=== PATIENT | female | born 1990 | race Caucasian/White ===

== ENCOUNTER 2017-03-02 18:12 | Inpatient (IN) | payer OTHER ==
[~2017-03-02] VITALS: Ht 152.4 cm; Wt 68.0 kg
[~2017-03-02 18:12] MED LIST: DEXAMETHASONE SOD PHOS 4 MG/ML VIAL IV ONE; LACTATED RINGER'S 1000 ML INJ 2,000 ML IV ONE; MORPHINE SULFATE PF 5 MG/10 ML VIAL ONE; ONDANSETRON HCL 4 MG/2 ML VIAL IV PUSH ONE; OXYTOCIN 10 UNIT/ML AMP IV ONE; PHENYLEPH/NS 1000 MCG/10 ML SYR IV ONE; TRIA.1%T EX; Z.0.NO CURRENT MEDS; ePHEDrine/NS 25 MG/5 ML SYR IV ONE
[2017-03-02] MEDS ORDERED: PREN29TA PO (18:56)
--- NOTE | 2017-03-02 19:02 | PD ---
HPI Chief Complaint Contractions Date Seen: Mar 02, 2017 Time Seen: 18:58 Travel History International Travel<30 Days: No Contact w/Intl Traveler<30Days: No Known Affected Area: No History of Present Illness HPI 26-year-old at 39 weeks and 5 days comes in complaining of contractions since this morning. Contractions began worsening about 2 PM and became more regular. Patient has had a previous section and has discussed the C- section versus vaginal after in detail with her OB provider and patient is set up for a repeat section on Sunday. Patient states that she was told that this baby is macrosomic and that the estimated weight based on extrapolation from an ultrasound at 36 weeks would be approximately 9 pounds. Patient is group B strep positive and she does desire repeat C- section. Last vaginal exam was approximately 3-4 days ago and her cervix was closed at that time Weeks Gestation: 39 Para: 1 : 3 Miscarriage: 1 History Past Medical History Medical History: Denies Significant Hx Obstetric History Obstetric History section D&C Past Surgical History Narrative Surgical and D&C Family History Family History: Social History Alcohol Use: No Tobacco Use: No Substance Abuse: No Allergies-Medications (Allergen,Severity, Reaction): Coded Allergies: No Known Allergies (Unverified , 03/17/12) Home Meds Reported Medications Vit-Iron Carbonyl ( Plus Iron 29-1 mg) 29 Mg Iron-1 Mg Tab, 1 TAB PO DAILY for Nutritional Supplement, #30 TAB 0 Refills 03/02/17 Discontinued Reported Medications Miscellaneous (No Current Meds) Misc 03/17/12 Discontinued Scripts Triamcinolone Acet (Aristocort) 0.1 % Cre, 0.1 % EX BIDPRN, #60 Prov:Rufino Roberson MD 03/17/12 Review of Systems Except as stated in HPI: all other systems reviewed are Neg Physical Exam Narrative GENERAL: Well-nourished, well-developed patient. SKIN: Warm and dry. HEAD: Normocephalic and atraumatic. EYES: No scleral icterus. No injection or drainage. ENT: No nasal drainage noted. Mucous membranes pink. Airway patent. NECK: Supple, trachea midline. No JVD. CARDIOVASCULAR: Regular rate and rhythm without murmurs, gallops, or rubs. RESPIRATORY: Breath sounds equal bilaterally. No accessory muscle use. ABDOMEN/GI: Abdomen soft, non-tender, bowel sounds present, no rebound, no guarding Gravid to [-37] weeks size Fundal Height: [-] GENITOURINARY: External Genitalia: intact and normal in appearance BUS glands: [Normal-] Cervix: [Mid position-] Dilatation: [-1 to 2] Effacement: [-80] Station: [-2-] Presentation: [Vertex-] Membranes: [intact] Uterine Contractions: [Every 3 minutes-] FHT's: Category: [1-] Baseline: [-140] Reactive: [-Moderate] Variability: [-Moderate] Decels: [-Absent] EXTREMITIES: No cyanosis or edema. BACK: Nontender without obvious deformity. No CVA tenderness. NEUROLOGICAL: Awake and alert. Motor and sensory grossly within normal limits. Five out of 5 muscle strength in all muscle groups. Normal speech. Data Data Vital Signs Reviewed: Yes Group B Strep: Positive MDM Medical Record Reviewed: Yes Plan 26-year-old who is at 39 weeks 5 days with a previous section now with regular contractions in labor Patient last ate at 2 PM and has had only water since that time. Last water intake was at 6 PM tonight Diagnosis Diagnosis: Primary Impression: 39 weeks gestation of Additional Impressions: Previous section complicating Irregular uterine contractions Brandi Mishra MD Mar 02, 2017 19:02
[2017-03-02] MEDS ORDERED: LACTATED RINGER'S 1000 ML INJ 1,000 ML IV ONE (19:03)
[2017-03-02] MEDS ORDERED: ceFAZolin 2 GM PREMIX 50 ML IV SCH (19:15)
[2017-03-02] MEDS ORDERED: LACTATED RINGER'S 1000 ML INJ 1,000 ML IV SCH (19:33)
[2017-03-02] MEDS ORDERED: ACETAMINOPHEN 1000 MG/100 ML 100 ML IV ONE (19:37)
[2017-03-02 20:03] LABS: AUTOMATED NEUTROPHIL # 10.9 TH/MM3 (1.8-7.7); BASOPHIL % 0.3 % (0.0-2.0); EOSINOPHIL # 0.1 TH/MM3 (0-0.4); EOSINOPHIL % 0.7 % (0.0-4.0); HEMATOCRIT 42.1 % (35.0-46.0); HEMO FLAGS DIFF FINAL; LYMPH % 12.9 % (9.0-44.0); LYMPHOCYTE # 1.8 TH/MM3 (1.0-4.8); MEAN CORPUSCULAR HEMOGLOBIN 30.6 PG (27.0-34.0); MEAN CORPUSCULAR HGB CONC 32.9 % (32.0-36.0); MONO % 7.4 % (0.0-8.0); NEUT % 78.7 % (16.0-70.0); PLATELET COUNT 193 TH/MM3 (150-450); RED BLOOD COUNT 4.53 MIL/MM3 (4.00-5.30); RED CELL DISTRIBUTION WIDTH 13.3 % (11.6-17.2); WHITE BLOOD COUNT 13.8 TH/MM3 (4.0-11.0)
[2017-03-02] MEDS ORDERED: CITRIC ACID-SODIUM CITRATE LIQ 30 ML UDC PO SCH (20:45)
[2017-03-02 21:10] VITALS: BP 126/67; PULSE 79; RESP 18; TEMP 97.7; O2SAT 98
[2017-03-02 21:20] VITALS: BP 131/61; PULSE 79; RESP 18; O2SAT 99
[2017-03-02 21:30] VITALS: BP 108/45; PULSE 72; RESP 18; O2SAT 99
--- NOTE | 2017-03-02 21:42 | MP ---
cc: Woody NOBLES MD DATE OF SURGERY 03/02/17 PREOPERATIVE DIAGNOSIS 1. Intrauterine at 39+ weeks. 2. Active labor. 3. Previous section. POSTOPERATIVE DIAGNOSIS 1. Intrauterine at 39+ weeks. 2. Active labor. 3. Previous section. PROCEDURES Repeat low transverse section. ANESTHESIA Spinal. SURGEON MD Mariah. FINDINGS A normal . 's 8 and 9. Weight 3880 grams. Normal fallopian tubes, normal ovaries, normal uterus. COMPLICATIONS None. COUNTS Correct. ESTIMATED BLOOD LOSS 400 cc. FLUIDS Crystalloids. CONDITION The patient tolerated the procedure well and went to recovery room in good condition. DESCRIPTION OF PROCEDURE The patient was taken to the operating room identified by name band and verbally. She was given a spinal anesthetic. A Campa catheter was inserted. She was prepped and draped for section. The old Pfannenstiel incision was removed and excised completely and the incision was taken down to the fascia. The fascia was taken off the rectus muscle by blunt and sharp dissection. The peritoneum was entered under direct vision without complication. The incision was extended with care to avoid the urinary bladder. A bladder blade was placed and a bladder flap created over the lower uterine segment which was well-developed. The uterus was then scored in a transverse manner along the lower uterine segment and taken down in the midline until the uterine cavity was entered. The incision was extended with the surgeon's fingers. The vertex was grasped and delivered through the incision without difficulty. The hypopharynx and nasopharynx were suctioned. The remainder of the was delivered. The cord was doubly clamped and cut and the handed to the resuscitation team that was present. Cord blood was obtained. The placenta was delivered manually without difficulty. The uterus was curettaged twice with a wet lap. The uterine incision was repaired with 2-0 Vicryl a running locking fashion, the second layer imbricating the first. The cul-de-sac and gutters were cleaned of blood and debris with a large amount of irrigation. The uterus was delivered back into the abdomen. The incision was again inspected and was hemostatic. The rectus muscles were reapproximated with 0 Vicryl in an interrupted fashion. The fascia was repaired with 0 Vicryl from lateral to midline bilaterally in a running fashion. The subcutaneous tissue was repaired with 3-0 Vicryl. The skin was repaired with 4-0 Monocryl in a subcuticular manner. Steri-Strips were applied. The wound was sterilely dressed. She tolerated the procedure well and went to the recovery room in good condition. R. MD JG HendrixV/EO /9:27 PM /9:30 PM
[2017-03-02 21:45] VITALS: BP 111/71; PULSE 74; RESP 18
[2017-03-02 21:47] VITALS: O2SAT 98
[2017-03-02] MEDS ORDERED: OXYTOCIN 30 UNITS-500ML PREMIX 500 ML ONE (22:03)
[2017-03-03 01:54] LABS: BLOOD, URINE TRACE (NEG); COMMENT (UR) CULT NOT INDICATED; CULTURE IF INDICATED CULT NOT INDICATED; GLUCOSE,URINE NEG (NEG); KETONE, URINE 80 mg/dL (NEG); MUCUS URINE FEW /lpf (OCC); NITRITE,URINE NEG (NEG); PH, URINE 5.5 (5.0-8.5); SQUAMOUS EPITHELIAL CELL URINE 2 /hpf (0-5); URINE COLOR YELLOW (YELLW/STRAW)
[2017-03-03] MEDS ORDERED: OXYTOCIN 30 UNITS-500ML PREMIX IV ONE (03:15)
[2017-03-03] MEDS ORDERED: ACETAMINOPHEN 325 MG TAB PO PRN (03:15)
[2017-03-03] MEDS ORDERED: ONDANSETRON HCL 4 MG/2 ML VIAL IV PUSH PRN (03:15)
[2017-03-03] MEDS ORDERED: oxyCODONE/ACETAMINOPHEN 5 MG/325 MG TAB PO PRN (03:15)
[2017-03-03] MEDS ORDERED: ZOLPIDEM TARTRATE 5 MG TAB PO PRN (03:15)
[2017-03-03] MEDS ORDERED: ceFAZolin 1,000 MG/NS 100 ML IV SCH ×4 (03:15→04:00)
[2017-03-03] MEDS ORDERED: LACTATED RINGER'S 1000 ML INJ 1,000 ML IV SCH (03:15)
[2017-03-03] MEDS ORDERED: SODIUM CHLORIDE 0.9% FLUSH 10 ML FLUSH IV FLUSH PRN ×2 (03:15)
[2017-03-03] MEDS ORDERED: OXYTOCIN 30 UNITS-500ML PREMIX IV PRN (03:15)
[2017-03-03] MEDS ORDERED: SIMETHICONE 80 MG CHEWABLE TAB PO PRN (03:15)
[2017-03-03 08:00] VITALS: BP 90/54; PULSE 80; RESP 18; TEMP 98.8
[2017-03-03] MEDS: IBUPROFEN 600 MG TAB PO PRN ×3 (08:35→20:35)
[2017-03-03] MEDS: oxyCODONE/ACETAMINOPHEN 5 MG/325 MG TAB PO PRN ×3 (08:35→20:35)
[2017-03-03 08:49] LABS: AUTOMATED NEUTROPHIL # 10.9 TH/MM3 (1.8-7.7); BASOPHIL % 0.1 % (0.0-2.0); EOSINOPHIL % 0.1 % (0.0-4.0); HEMATOCRIT 35.2 % (35.0-46.0); HEMO FLAGS DIFF FINAL; LYMPH % 10.7 % (9.0-44.0); LYMPHOCYTE # 1.5 TH/MM3 (1.0-4.8); MEAN CELL VOLUME 93.9 FL (80.0-100.0); MEAN CORPUSCULAR HEMOGLOBIN 30.9 PG (27.0-34.0); MEAN CORPUSCULAR HGB CONC 32.9 % (32.0-36.0); MONO % 8.9 % (0.0-8.0); NEUT % 80.2 % (16.0-70.0); PLATELET COUNT 146 TH/MM3 (150-450); RED BLOOD COUNT 3.75 MIL/MM3 (4.00-5.30); RED CELL DISTRIBUTION WIDTH 13.9 % (11.6-17.2); WHITE BLOOD COUNT 13.7 TH/MM3 (4.0-11.0)
[2017-03-03 14:00] VITALS: BP 94/61; PULSE 78; RESP 16; TEMP 98.2
--- NOTE | 2017-03-03 14:11 | HHI.OB ---
Subjective Post Operative Day: 1 Remarks Doing well Pain is well controlled Bleeding is normal Baby is doing well Objective Vitals/I&O Vital Signs Date Time Temp Pulse Resp B/P (MAP) Pulse Ox O2 Delivery O2 Flow Rate FiO2 03/03/17 08:00 80 18 90/54 (66) 03/03/17 08:00 98.8 03/02/17 21:47 98 03/02/17 21:45 111/71 (84) 03/02/17 21:45 74 18 03/02/17 21:30 72 18 108/45 (66) 99 03/02/17 21:20 79 18 131/61 (84) 99 03/02/17 21:10 126/67 (86) 03/02/17 21:10 97.7 79 18 03/02/17 21:10 98 Result Diagram: 03/03/17 08 Objective Remarks GENERAL: Well-nourished, well-developed patient. CARDIOVASCULAR: Regular rate and rhythm without murmurs, gallops, or rubs. RESPIRATORY: Breath sounds equal bilaterally. No accessory muscle use. ABDOMEN/GI: Abdomen soft, non-tender, bowel sounds present. Incision: Clean, dry and intact. Fundus: Firm, non-tender at umbilicus. GENITOURINARY: Light to moderate bleeding. EXTREMITIES: No cyanosis or edema, non-tender, without signs of DVT. Medications and IVs Current Medications Medications (Trade) Dose Ordered Sig/Jessica Route Start Time Stop Time Status Last Admin Cefazolin Sodium/ Dextrose 50 ml @ 100 mls/hr FLAT SURFACER JEWEL IV 03/02/17 19:15 03/06/17 19:14 Lactated Ringer's 1,000 ml @ 100 mls/hr Q10H IV 03/03/17 03:15 03/03/17 23:14 (NS Flush) 2 ml UNSCH PRN IV FLUSH 03/03/17 03:15 (NS Flush) 2 ml UNSCH PRN IV FLUSH 03/03/17 03:15 (Tylenol) 650 mg Q4H PRN PO 03/03/17 03:15 (Motrin) 600 mg Q6H PRN PO 03/03/17 03:15 03/03/17 08:35 (Percocet 5-325 Mg) 1 tab Q4H PRN PO 03/03/17 03:15 03/03/17 08:35 (Percocet 5-325 Mg) 2 tab Q4H PRN PO 03/03/17 03:15 (Ambien) 5 mg HS PRN PO 03/03/17 03:15 (M-M-R Ii Inj) 0.5 ml ONCE ONCE SQ 03/04/17 16:00 03/04/17 16:01 (Boostrix Inj) 0.5 ml ONCE ONCE IM 03/04/17 16:00 03/04/17 16:01 (Mylicon Chew) 80 mg QID PRN PO 03/03/17 03:15 (Monika-Colace) 2 tab Q12H PRN PO 03/03/17 03:15 (Zofran Inj) 4 mg Q6H PRN IV PUSH 03/03/17 03:15 Assessment/Plan Assessment and Plan POD #1 Doing well Routine care. Woody Lemus MD Mar 03, 2017 14:11
[2017-03-03] MEDS ORDERED: IBUP-232 PO (14:13)
[2017-03-03] MEDS ORDERED: OXYC1TAB63 PO (14:13)
[2017-03-03] MEDS: DOCUSATE SODIUM 50 MG/SENNA 8.6 MG TAB PO PRN (14:45)
[2017-03-03 20:30] VITALS: BP 106/66; PULSE 80; RESP 18; TEMP 98.1
[2017-03-04] MEDS: oxyCODONE/ACETAMINOPHEN 5 MG/325 MG TAB PO PRN ×5 (01:04→22:30)
[2017-03-04] MEDS: IBUPROFEN 600 MG TAB PO PRN ×4 (02:46→22:30)
[2017-03-04 08:10] VITALS: BP 107/68; PULSE 80; RESP 18; TEMP 98.1
[2017-03-04] MEDS: DOCUSATE SODIUM 50 MG/SENNA 8.6 MG TAB PO PRN ×2 (09:41→22:30)
[2017-03-04] MEDS ORDERED: MEASLES, MUMPS, RUBELLA VACCINE 0.5 ML VIAL SQ ONE (16:00)
[2017-03-04] MEDS ORDERED: DIPHTH/TETANUS/ACEL PERTUSSIS (BOOSTER) 0.5 ML VIAL/PFS IM ONE (16:00)
--- NOTE | 2017-03-04 16:31 | HHI.OB ---
Subjective Post Operative Day: 2 Remarks Doing well Pain is controlled Bleeding is normal Baby is doing well Objective Vitals/I&O Vital Signs Date Time Temp Pulse Resp B/P (MAP) Pulse Ox O2 Delivery O2 Flow Rate FiO2 03/04/17 08:10 80 18 107/68 (81) 03/04/17 08:10 98.1 03/03/17 20:30 98.1 80 18 106/66 (79) Result Diagram: 03/03/17 0825 Objective Remarks GENERAL: Well-nourished, well-developed patient. CARDIOVASCULAR: Regular rate and rhythm without murmurs, gallops, or rubs. RESPIRATORY: Breath sounds equal bilaterally. No accessory muscle use. ABDOMEN/GI: Abdomen soft, non-tender, bowel sounds present. Incision: Clean, dry and intact. Fundus: Firm, non-tender at umbilicus. GENITOURINARY: Light to moderate bleeding. EXTREMITIES: No cyanosis or edema, non-tender, without signs of DVT. Medications and IVs Current Medications Medications (Trade) Dose Ordered Sig/Jessica Route Start Time Stop Time Status Last Admin Cefazolin Sodium/ Dextrose 50 ml @ 100 mls/hr [employer]PERATION IV 03/02/17 19:15 03/06/17 19:14 (NS Flush) 2 ml UNSCH PRN IV FLUSH 03/03/17 03:15 (NS Flush) 2 ml UNSCH PRN IV FLUSH 03/03/17 03:15 (Tylenol) 650 mg Q4H PRN PO 03/03/17 03:15 (Motrin) 600 mg Q6H PRN PO 03/03/17 03:15 03/04/17 16:21 (Percocet 5-325 Mg) 1 tab Q4H PRN PO 03/03/17 03:15 03/04/17 14:15 (Percocet 5-325 Mg) 2 tab Q4H PRN PO 03/03/17 03:15 03/04/17 09:44 (Ambien) 5 mg HS PRN PO 03/03/17 03:15 (Mylicon Chew) 80 mg QID PRN PO 03/03/17 03:15 03/04/17 09:41 (Monika-Colace) 2 tab Q12H PRN PO 03/03/17 03:15 03/04/17 09:41 (Zofran Inj) 4 mg Q6H PRN IV PUSH 03/03/17 03:15 Assessment/Plan Assessment and Plan POD #2 Doing well Routine care. Home tomorrow Woody Lemus MD Mar 04, 2017 16:31
--- NOTE | 2017-03-04 16:32 | HHI.DCPOC ---
Discharge Care Plan Diagnosis: (1) delivery delivered Report Symptoms to Your Doctor -Temperature above 100.5 degrees -Redness, of incision or excessive or foul smelling drainage -Unusual pain or calf pain -Increased vaginal bleeding -Painful or difficulty urinating -Feelings of extreme sadness or anxiety after 2 weeks Goals to Promote Your Health * To prevent worsening of your condition and complications * To maintain your health at the optimal level Directions to Meet Your Goals Take your medications as prescribed Follow your dietary instruction Follow activity as directed Ensure plenty of rest for recovery Drink fluids for hydration Keep your appointments as scheduled Take your immunizations and boosters as scheduled If your symptoms worsen call your PCP, if no PCP go to Urgent Care Center or Emergency Room Smoking is Dangerous to Your Health. Avoid second hand smoke Call the 24-hour crisis hotline for domestic abuse at Woody Lemus MD Mar 04, 2017 16:32
[2017-03-04 20:10] VITALS: BP 103/64; PULSE 72; RESP 18; TEMP 98.3
[2017-03-05] MEDS: oxyCODONE/ACETAMINOPHEN 5 MG/325 MG TAB PO PRN ×3 (02:19→09:57)
[2017-03-05] MEDS: IBUPROFEN 600 MG TAB PO PRN (05:36)
[2017-03-05 07:40] VITALS: BP 112/70; PULSE 76; RESP 16; TEMP 98.1
--- NOTE | 2017-03-05 08:20 | HHI.OB ---
Subjective Post Operative Day: 3 Remarks doing well, circ done Objective Vitals/I&O Vital Signs Date Time Temp Pulse Resp B/P (MAP) Pulse Ox O2 Delivery O2 Flow Rate FiO2 03/04/17 20:10 98.3 72 18 03/04/17 20:10 103/64 (77) Result Diagram: 03/03/17 0825 Objective Remarks GENERAL: Well-nourished, well-developed patient. CARDIOVASCULAR: Regular rate and rhythm without murmurs, gallops, or rubs. RESPIRATORY: Breath sounds equal bilaterally. No accessory muscle use. ABDOMEN/GI: Abdomen soft, non-tender, bowel sounds present. Incision: Clean, dry and intact. Fundus: Firm, non-tender at umbilicus. GENITOURINARY: Light to moderate bleeding. EXTREMITIES: No cyanosis or edema, non-tender, without signs of DVT. Medications and IVs Current Medications Medications (Trade) Dose Ordered Sig/Jessica Route Start Time Stop Time Status Last Admin Cefazolin Sodium/ Dextrose 50 ml @ 100 mls/hr DEALER [employer] REP IV 03/02/17 19:15 03/06/17 19:14 (NS Flush) 2 ml UNSCH PRN IV FLUSH 03/03/17 03:15 (NS Flush) 2 ml UNSCH PRN IV FLUSH 03/03/17 03:15 (Tylenol) 650 mg Q4H PRN PO 03/03/17 03:15 (Motrin) 600 mg Q6H PRN PO 03/03/17 03:15 03/05/17 05:36 (Percocet 5-325 Mg) 1 tab Q4H PRN PO 03/03/17 03:15 03/05/17 05:36 (Percocet 5-325 Mg) 2 tab Q4H PRN PO 03/03/17 03:15 03/04/17 09:44 (Ambien) 5 mg HS PRN PO 03/03/17 03:15 (Mylicon Chew) 80 mg QID PRN PO 03/03/17 03:15 03/04/17 09:41 (Monika-Colace) 2 tab Q12H PRN PO 03/03/17 03:15 03/04/17 22:30 (Zofran Inj) 4 mg Q6H PRN IV PUSH 03/03/17 03:15 Assessment/Plan Assessment and Plan POD #3 Doing well Routine care. Home today Discharge Planning today Attending Attestation pt seen by Kathe Bello MD Mar 05, 2017 08:20
== END 2017-03-05 11:53 | disposition home or self-care (01) | DRG 766 ==
LOC: HOBED 18:12 → H2EB 19:06 → H1EA 22:11
PROVIDERS: ADMIT Obstetrics & Gynecology; ATTEND Obstetrics & Gynecology
PROC: 10D00Z1 Extraction of Products of Conception, Low, Open Approach (ICD-10-PCS; principal; 2017-03-02)
DX: O34.219 Maternal care for unspecified type scar from previous cesarean delivery (principal); O36.63X0 Maternal care for excessive fetal growth, third trimester, not applicable or unspecified; O99.824 Streptococcus B carrier state complicating childbirth; Z37.0 Single live birth; Z3A.39 39 weeks gestation of pregnancy
CPT/HCPCS: 81001; 85025; 86850; 86900; 86901; J0131; J0690; J1100; J2274; J2370; J2405; J2590; J7120

== ENCOUNTER 2018-05-02 09:47 | Inpatient (IN) ==
[2018-05-02] MEDS ORDERED: Citric Acid/Sodium Citrate Liq 30 ML UDC PO SCH (11:15)
[2018-05-02] MEDS ORDERED: EPINEPHrine PF/SF Inj 1 MG/ML Ampul I-OCULAR ONE (11:20)
[2018-05-02 11:30] LABS: Baso % (Auto) 0.4 % (0.0-2.0); Eos # (Auto) 0.1 th/mm3 (0.0-0.4); Eos % (Auto) 0.8 % (0.0-4.0); Hematocrit 41.7 % (35.0-46.0); Hemoglobin 14.1 gm/dL (11.6-15.3); Lymph # (Auto) 1.7 th/mm3 (1.0-4.8); Lymph % (Auto) 17.4 % (9.0-44.0); Mean Corpuscular HGB Conc 33.7 % (32.0-36.0); Mean Corpuscular Hemoglobin 32.7 pg (27.0-34.0); Mean Platelet Volume 9.5 fL (7.0-11.0); Mono # (Auto) 0.9 th/mm3 (0.0-0.9); Mono % (Auto) 9.2 % (0.0-8.0); Neut # (Auto) 7.2 th/mm3 (1.8-7.7); Neut % (Auto) 72.2 % (16.0-70.0); Platelet Count 154 th/mm3 (150-450); Red Cell Distribution Width 15.4 % (11.6-17.2); White Blood Count 9.9 th/mm3 (4.0-11.0)
--- NOTE | 2018-05-02 11:33 | P.HPOB ---
History of Present Illness Service: Labor & Delivery Primary Care Physician: No Primary Care Physician Chief Complaint: Repeat History of Present Illness: Pt presents at 39 weeks gestation for and tubal ligation. H/o two c- sections. testing normal, Rh negative, and GBS negative. Weeks Gestation:: 39 Para: 2 : 4 Last menstrual period: 08/02/2017 - Inpatient Certification I certify that the inpatient services were ordered in accordance with Medicare regulations governing the order. This includes certification that hospital inpatient services are reasonable and necessary and in the case of services not specified as inpatient-only under 42 CFR 419.22(n), that they are appropriately provided as inpatient services in accordance to with the 2-midnight benchmark under 43 CFR 412.3(e) Estimated Total Length of Stay (Days): 3 Plans for Post Hospital Care: Home Review of Systems All other systems reviewed negative except as stated in HPI Cardiovascular: Denies chest pain Respiratory: Denies shortness of breath Gastrointestinal: Denies abdominal pain PMFSH - History History Provided By: Patient - Medical / Surgical Hx Neg / Unobtainable Medical Problems Denied: Yes - Tobacco History Smoking Status: Never smoker - Alcohol History How Often Do You Have a Drink Containing Alcohol: Never - Substance Use History Substance History: No History of Abuse - Travel History History of Recent Travel: No Recent Travel in the [place] Within the Last 8 Weeks: No Recent Travel Out of the Country Within the Last 8 Weeks: No - Immunization History Hx Influenza Vaccine This Season: Yes Medications and Allergies Active Medications: Active Medications Citric Acid/Sodium Citrate (Sodium Citrate/Citric Acid Liq) 30 ml PO INCENDIARY POWDER MIXER [facility] Stop: 05/06/18 11:14 Cefazolin Sodium/Dextrose (Ancef 1 Gm Premix Inj) 1 gm in 50 mls @ 100 mls/hr IV.SIG INCENDIARY POWDER MIXER [facility] Stop: 05/03/18 11:59 Lactated Ringer's (Lr 1000 Ml Inj) 1,000 mls @ 2,000 mls/hr IV.SIG .Q30M ONE Stop: 05/02/18 11:33 Lactated Ringer's (Lr 1000 Ml Inj) 1,000 mls @ 150 mls/hr IV.CONT .Q6H40M [facility] Allergies Allergy/AdvReac Type Severity Reaction Status Date / Time No Known Allergies Allergy Verified 04/15/18 19:19 Home Medications Medication Instructions Recorded Confirmed Type ferrous sulfate [iron] 325 mg PO DAILY 04/15/18 05/02/18 History vit-iron fum-folic ac 1 tab PO DAILY 04/15/18 05/02/18 History [ Vitamin] Exam Vital signs: Vital Signs 05/02/18 10:05 05/02/18 10:15 Temperature 97.8 F Pulse Rate 79 Respiratory Rate 17 Blood Pressure 114/65 Intake & Output 05/01/18 05/02/18 05/02/18 18:59 06:59 18:59 Weight 71 kg Other: Weight On Admission 71 kg - Constitutional no acute distress, cooperative - Routine HEENT Exam Head: Present: normocephalic, atraumatic Eye: Present: EOMI - Routine Neck Exam Present: supple - Routine Respiratory Exam Present: CTA bilaterally. Absent: wheezes - Routine Cardiovascular Exam Present: RRR, S1, S2. Absent: murmur - Routine Abdominal Exam Present: soft. Absent: tenderness - Routine Extremities Exam Present: full ROM. Absent: cyanosis - Routine Skin Exam Present: intact - Routine Neurological Exam Present: alert, oriented X3 Results - Labs CBC & Chem 7: 05/02/18 10:05 Caprini VTE Risk Assessment Caprini VTE Risk Assessment: No/Low Risk (score <= 1) Caprini Risk Assessment Model: Point Value = 1 Point Value = 2 Point Value = 3 Point Value = 5 Age 41-60 Minor surgery BMI > 25 kg/m2 Swollen legs Varicose veins or History of unexplained or recurrent spontaneous Oral contraceptives or hormone replacement Sepsis (< 1 month) Serious lung disease, including pneumonia (< 1 month) Abnormal pulmonary function Acute myocardial infarction Congestive heart failure (< 1 month) History of inflammatory bowel disease Medical patient at bed rest Age 61-74 Arthroscopic surgery Major open surgery (> 45 min) Laparoscopic surgery (> 45 min) Malignancy Confined to bed (> 72 hours) Immobilizing plaster cast Central venous access Age >= 75 History of VTE Family history of VTE Factor V Leiden Prothrombin [id number] Lupus anticoagulant Anticardiolipin antibodies Elevated serum homocysteine Heparin-induced thrombocytopenia Other congenital or acquired thrombophilia Stroke (< 1 month) Elective arthroplasty Hip, pelvis, or leg fracture Acute spinal cord injury (< 1 month) Prophylaxis Regimen: Total Risk Factor Score Risk Level Prophylaxis Regimen 0-1 Low Early ambulation 2 Moderate Order ONE of the following: *Sequential Compression Device (SCD) *Heparin 5000 units SQ BID 3-4 Higher Order ONE of the following medications: *Heparin 5000 units SQ TID *Enoxaparin/Lovenox 40 mg SQ daily (WT < 150 kg, CrCl > 30 mL/min) *Enoxaparin/Lovenox 30 mg SQ daily (WT < 150 kg, CrCl > 10-29 mL/min) *Enoxaparin/Lovenox 30 mg SQ BID (WT < 150 kg, CrCl > 30 mL/min) AND/OR *Sequential Compression Device (SCD) 5 or more Highest Order ONE of the following medications: *Heparin 5000 units SQ TID (Preferred with Epidurals) *Enoxaparin/Lovenox 40 mg SQ daily (WT < 150 kg, CrCl > 30 mL/min) *Enoxaparin/Lovenox 30 mg SQ daily (WT < 150 kg, CrCl > 10-29 mL/min) *Enoxaparin/Lovenox 30 mg SQ BID (WT < 150 kg, CrCl > 30 mL/min) AND *Sequential Compression Device (SCD) Assessment and Plan - Plan 1. Intrauterine at 39 weeks gestation 2. History of Repeat scheduled 3. Tubal ligation 4. Rh positive 5. GBS negative
[2018-05-02 11:57] LABS: Bilirubin,Urine Negative (Negative); Clarity,Urine Hazy (Clear); Color,Urine Yellow (Yellw/Straw); Glucose,Urine (UA) Negative (Negative); Leukocyte Esterase,Urine Negative (Negative); Mucus,Urine Few /lpf (Occasional); Nitrite,Urine Negative (Negative); Specific Gravity,Urine 1.018 (1.002-1.035); Squamous Epithelial Cell,Urine 7 /hpf (0-5)
[2018-05-02] MEDS ORDERED: Morphine Sulfate PF Inj 5 MG/10 ML Ampul ONE (11:57)
[2018-05-02] MEDS ORDERED: ceFAZolin 1 GM Premix Inj 1 GM/50 ML PIGGYBACK IV.SIG SCH (12:00)
[2018-05-02 13:02] LABS: Amphetamine Urine With Conf Neg (Neg); Benzodiazepine Urine With Conf Neg (Neg); Cannabinoid Urine With Conf Neg (Neg); Cocaine Urine With Conf Neg (Neg); Opiates Urine With Conf Neg (Neg)
[2018-05-02] MEDS ORDERED: Senna/Docusate Sodium 8.6/50 MG Tablet PO PRN (14:35)
[2018-05-02] MEDS ORDERED: Simethicone 80 MG Chew Tablet PO PRN (14:35)
[2018-05-02] MEDS ORDERED: Oxytocin 30 Units/500ml Premix 30 UNITS/500 ML BAG IV.SIG ONE (14:35)
[2018-05-02] MEDS ORDERED: Zolpidem Tartrate 5 MG Tablet PO PRN (14:35)
[2018-05-02] MEDS ORDERED: Oxytocin 30 Units/500ml Premix 30 UNITS/500 ML BAG ONE (14:37)
[2018-05-02] MEDS ORDERED: Naloxone Inj 0.4 MG/ML Vial IV.PUSH PRN (15:45)
[2018-05-02] MEDS ORDERED: Oxytocin 30 Units/500ml Premix 30 UNITS/500 ML BAG IV.SIG PRN (19:35)
[2018-05-02] MEDS ORDERED: ceFAZolin 1 GM Premix Inj 1 GM/50 ML PIGGYBACK IV.SIG ONE (20:46)
[2018-05-02] MEDS: ceFAZolin 1 GM Premix Inj 1 GM/50 ML PIGGYBACK IV.SIG SCH (20:57)
[2018-05-03] MEDS ORDERED: ceFAZolin 1 GM Premix Inj 1 GM/50 ML PIGGYBACK IV.SIG ONE (04:15)
[2018-05-03] MEDS: ceFAZolin 1 GM Premix Inj 1 GM/50 ML PIGGYBACK IV.SIG SCH (04:19)
[2018-05-03 06:13] LABS: Baso % (Auto) 0.2 % (0.0-2.0); Eos # (Auto) 0.1 th/mm3 (0.0-0.4); Eos % (Auto) 0.5 % (0.0-4.0); Hematocrit 34.4 % (35.0-46.0); Hemoglobin 11.7 gm/dL (11.6-15.3); Lymph # (Auto) 1.8 th/mm3 (1.0-4.8); Lymph % (Auto) 15.5 % (9.0-44.0); Mean Corpuscular HGB Conc 33.9 % (32.0-36.0); Mean Corpuscular Hemoglobin 32.4 pg (27.0-34.0); Mean Corpuscular Volume 95.6 fL (80.0-100.0); Mono # (Auto) 1.3 th/mm3 (0.0-0.9); Mono % (Auto) 11.1 % (0.0-8.0); Neut # (Auto) 8.4 th/mm3 (1.8-7.7); Neut % (Auto) 72.7 % (16.0-70.0); Platelet Count 117 th/mm3 (150-450); Red Cell Distribution Width 15.3 % (11.6-17.2); White Blood Count 11.5 th/mm3 (4.0-11.0)
[2018-05-03] MEDS: Prenatal Vit/Ca/Iron/Folic Acid Tablet PO SCH (09:06)
--- NOTE | 2018-05-03 12:32 | P.PNOB ---
Subjective Post op day: 1 Objective Vital Signs/I&O: Vital Signs 05/02/18 14:43 05/02/18 14:56 05/02/18 15:12 Temperature 97.3 F L 97.5 F L Pulse Rate 68 69 73 Respiratory Rate 16 20 19 Blood Pressure 103/59 L 107/53 L 05/02/18 15:15 05/02/18 15:29 05/02/18 15:55 Temperature 97.8 F Pulse Rate 62 Respiratory Rate 16 Blood Pressure 112/53 L 103/53 L 101/65 05/02/18 20:00 05/03/18 00:00 05/03/18 04:00 Temperature 98.5 F 98.3 F 98.3 F Pulse Rate 104 H 86 71 Respiratory Rate 18 18 16 Blood Pressure 104/59 L 95/50 L 90/53 L 05/03/18 08:00 Temperature 98.7 F Pulse Rate 84 Respiratory Rate 18 Blood Pressure 94/54 L Intake & Output 05/02/18 05/03/18 05/03/18 18:59 06:59 18:59 Intake Total 50 / 50 Balance 50 / 50 Weight 71 kg Intake: IV 50 / 50 Ancef 1 GM Premix Inj 1 gm In 50 / 50 50 ml @ 100 mls/hr IV.SIG Q8H [facility] Rx#:[id number] Other: Weight On Admission 71 kg Result Diagrams: 05/03/18 05:16 Objective Remarks: GENERAL: Well-nourished, well-developed patient. CARDIOVASCULAR: Regular rate and rhythm without murmurs, gallops, or rubs. RESPIRATORY: Breath sounds equal bilaterally. No accessory muscle use. ABDOMEN/GI: Abdomen soft, non-tender, bowel sounds present. Incision: dressing Clean, dry and intact. Fundus: Firm, non-tender umbilicus +1 GENITOURINARY: Light to moderate bleeding. EXTREMITIES: No cyanosis or edema, non-tender, without signs of DVT. Medications and IVs: Active Medications Citric Acid/Sodium Citrate (Sodium Citrate/Citric Acid Liq) 30 ml PO [employer]ILITIES EQUIPMENT REPAIRER [facility] Stop: 05/06/18 11:14 Diphenhydramine HCl (Benadryl Inj) 25 mg IV.PUSH Q6H PRN PRN Reason: MILD TO MODERATE ITCHING Stop: 05/03/18 15:44 Last Admin: 05/02/18 17:09 Dose: 25 mg Diphenhydramine HCl (Benadryl) 50 mg PO Q6H PRN PRN Reason: MILD TO MODERATE ITCHING Stop: 05/03/18 15:44 Diphtheria/Pertussis/Tetanus Vacc (Boostrix Vaccine Inj) 0.5 ml IM .ONCE ONE Stop: 05/03/18 16:01 Lactated Ringer's (Lr 1000 Ml Inj) 1,000 mls @ 100 mls/hr IV.CONT .Q10H CESIA Stop: 05/03/18 15:34 Last Admin: 05/02/18 20:57 Dose: 100 mls/hr Oxytocin (Pitocin 30 Units/Ns 500 Ml Premix) 30 units in 500 mls @ 100 mls/hr IV.SIG UNSCH PRN PRN Reason: Heavy bleeding Ibuprofen (Motrin) 800 mg PO Q8H PRN PRN Reason: cramping Last Admin: 05/03/18 09:06 Dose: 800 mg Measles/Mumps/Rubella Vaccine Live (M-M-R Ii Vaccine Inj) 0.5 ml SQ .ONCE ONE Stop: 05/03/18 16:01 Miscellaneous Information ([facility] Nursing Information) 1 each OTHER UNSCH PRN PRN Reason: SEE LABEL COMMENTS Stop: 05/03/18 12:49 Miscellaneous Information ([facility] Nursing Information) 1 each OTHER UNSCH PRN PRN Reason: SEE LABEL COMMENTS Stop: 05/03/18 12:49 Naloxone HCl (Narcan Inj) 0.4 mg IV.PUSH UNSCH PRN PRN Reason: SEE LABEL COMMENTS Stop: 05/03/18 15:44 Ondansetron HCl (Zofran Inj) 4 mg IV.PUSH Q6H PRN PRN Reason: NAUSEA OR VOMITING Oxycodone/Acetaminophen (Percocet 5/325 Mg) 1 tab PO Q4H PRN PRN Reason: PAIN SCALE 3 TO 5 Last Admin: 05/03/18 09:07 Dose: 1 tab Oxycodone/Acetaminophen (Percocet 5/325 Mg) 2 tab PO Q4H PRN PRN Reason: PAIN SCALE 6 TO 10 Vit/Calcium/Iron/Folic Ac (Stuartnatal Plus 3) 1 tab PO DAILY CESIA Last Admin: 05/03/18 09:06 Dose: 1 tab Senna/Docusate Sodium (Monika-Colace) 2 tab PO Q12H PRN PRN Reason: CONSTIPATION Simethicone (Mylicon Chew) 80 mg PO QID PRN PRN Reason: FLATULENCE Sodium Chloride (Ns Flush) 2 ml IV.FLUSH BID CESIA Last Admin: 05/03/18 09:09 Dose: 2 ml Sodium Chloride (Ns Flush) 2 ml IV.FLUSH PRN PRN PRN Reason: FLUSH AFTER USING IV ACCESS Zolpidem Tartrate (Ambien) 5 mg PO HS PRN PRN Reason: INSOMNIA Assessment and Plan - Diagnosis (1) Status post repeat low transverse section Code(s): Z98.891 - History of uterine scar from previous surgery Status: Acute Plan: routine care (2) tubal ligation planned Status: Acute Plan: routine (3) Thrombocytopenia Code(s): D69.6 - Thrombocytopenia, unspecified Status: Acute Plan: repeat labs tomorrow - Plan POD #1 repeat c/s tubal pt doing well pain well managed with oral pain medication platelets 117, will repeat labs in am and bonding with fundus firm +1, pt needed to void, bleeding normal pt to shower and ambulate more today routine care Discharge Planning: dc home in 1-2 days
--- NOTE | 2018-05-03 14:50 | P.OP ---
- Preoperative Diagnosis (1) Previous section complicating (2) tubal ligation planned - Postoperative Diagnosis (1) Previous section complicating (2) tubal ligation planned Date of procedure: 05/02/18 Procedure: Repeat LTCS, BTL.. Surgeon: Ned Lemus MD Operation and Findings: Counts correct Findings Normal baby boy Apgars 8/8 Wt 8/9 Normal tubes, uterus, ovaries. Taken to the operating room identified by name band and verbally and given a spinal anesthetic. She was prepped and draped in the usual sterile manner for a section. A time out was taken. The old incision was excised sharply and the Pfannenstiel incision was made and carried down to the fascia the fascia was nicked bilaterally and the fascia was taken off the rectus muscle by blunt and sharp dissection. The rectus muscles were spread bluntly and the peritoneum was entered under direct vision. The incision was extended with care to avoid the urinary bladder. A bladder blade was placed and a bladder flap was created in the usual fashion. The lower uterine segment was then incised sharply in a transverse manner and taken down in the midline until the uterine cavity was entered. The incision was extended with the surgeon's fingers. The vertex was grasped and with fundal pressure the vertex was delivered without difficulty hypopharynx and nasopharynx were suctioned and the remainder of the delivered without difficulty. The cord clamping was delayed 45 seconds and then the cord was clamped cut and the was handed over to the resuscitation team cord blood was obtained the placenta was removed manually and the uterus was curettaged twice with a wet lap. The uterus was delivered from the abdomen. The uterine incision was repaired with 0 Vicryl in a running fashion in 2 layers the second layer imbricating the first. The fallopian tubes were then lilgated and a small portion removed. The cul-de-sac and gutters were cleaned of blood and debris the uterus was delivered back into the abdomen. The rectus muscles were reapproximated with 0 Vicryl in a running the fascia was repaired with 0 Vicryl from lateral to midline bilaterally. The subcutaneous layer was repaired with a 3-0 Vicryl. The skin was repaired with a 4-0 Monocryl in a subcuticular manner. Patient tolerated the procedure well and went to recovery room in good condition.
[2018-05-03] MEDS ORDERED: Measles/Mumps/Rubella Vaccine Inj 0.5 ML Vial SQ ONE (16:00)
[2018-05-03] MEDS ORDERED: Diphtheria/Tetanus/Pertussis Vaccine Inj 0.5 ML Syringe IM ONE (16:00)
[2018-05-04 05:51] LABS: Hematocrit 33.5 % (35.0-46.0); Hemoglobin 11.5 gm/dL (11.6-15.3); Mean Corpuscular HGB Conc 34.3 % (32.0-36.0); Mean Corpuscular Hemoglobin 32.5 pg (27.0-34.0); Mean Corpuscular Volume 94.8 fL (80.0-100.0); Mean Platelet Volume 8.8 fL (7.0-11.0); Platelet Count 122 th/mm3 (150-450); Red Blood Count 3.54 mil/mm3 (4.00-5.30); Red Cell Distribution Width 15.4 % (11.6-17.2); White Blood Count 8.4 th/mm3 (4.0-11.0)
--- NOTE | 2018-05-04 07:59 | P.PNOB ---
Subjective Post op day: 2 Interval history: Doing well, pain controlled, ambulating without difficulty, voiding spontaneously, vaginal bleeding less than menses, tolerating a diet without nausea or vomiting Objective Vital Signs/I&O: Vital Signs 05/03/18 08:00 05/03/18 10:05 05/03/18 12:00 Temperature 98.7 F 98.7 F Pulse Rate 84 74 Respiratory Rate 18 2 L 16 Blood Pressure 94/54 L 100/55 L 05/03/18 20:00 Temperature 98.1 F Pulse Rate 70 Respiratory Rate 18 Blood Pressure 97/52 L Result Diagrams: 05/04/18 05:38 Objective Remarks: GENERAL: Well-nourished, well-developed patient. CARDIOVASCULAR: Regular rate and rhythm without murmurs, gallops, or rubs. RESPIRATORY: Breath sounds equal bilaterally. No accessory muscle use. ABDOMEN/GI: Abdomen soft, non-tender, bowel sounds present. Incision: Clean, dry and intact. Fundus: Firm, non-tender at umbilicus. GENITOURINARY: Light to moderate bleeding. EXTREMITIES: No cyanosis or edema, non-tender, without signs of DVT. Medications and IVs: Active Medications Citric Acid/Sodium Citrate (Sodium Citrate/Citric Acid Liq) 30 ml PO [employer] [facility] Stop: 05/06/18 11:14 Oxytocin (Pitocin 30 Units/Ns 500 Ml Premix) 30 units in 500 mls @ 100 mls/hr IV.SIG UNSCH PRN PRN Reason: Heavy bleeding Ibuprofen (Motrin) 800 mg PO Q8H PRN PRN Reason: cramping Last Admin: 05/04/18 01:21 Dose: 800 mg Ondansetron HCl (Zofran Inj) 4 mg IV.PUSH Q6H PRN PRN Reason: NAUSEA OR VOMITING Oxycodone/Acetaminophen (Percocet 5/325 Mg) 1 tab PO Q4H PRN PRN Reason: PAIN SCALE 3 TO 5 Last Admin: 05/04/18 05:39 Dose: 1 tab Oxycodone/Acetaminophen (Percocet 5/325 Mg) 2 tab PO Q4H PRN PRN Reason: PAIN SCALE 6 TO 10 Last Admin: 05/03/18 21:24 Dose: 2 tab Vit/Calcium/Iron/Folic Ac (Stuartnatal Plus 3) 1 tab PO DAILY [facility] Last Admin: 05/03/18 09:06 Dose: 1 tab Senna/Docusate Sodium (Monika-Colace) 2 tab PO Q12H PRN PRN Reason: CONSTIPATION Last Admin: 05/04/18 01:21 Dose: 2 tab Simethicone (Mylicon Chew) 80 mg PO QID PRN PRN Reason: FLATULENCE Sodium Chloride (Ns Flush) 2 ml IV.FLUSH BID [facility] Last Admin: 05/03/18 23:48 Dose: Not Given Sodium Chloride (Ns Flush) 2 ml IV.FLUSH PRN PRN PRN Reason: FLUSH AFTER USING IV ACCESS Zolpidem Tartrate (Ambien) 5 mg PO HS PRN PRN Reason: INSOMNIA Assessment and Plan - Plan 27-year-old 013 status post repeat low transverse and bilateral tubal ligation at 39 weeks. 1. Postoperative day #2: Afebrile, vital signs stable, meeting milestones, discharge home today. Discussed precautions expectations and follow- up. -Male 2. Postoperative thrombocytopenia: Recheck this morning with upward trend, no need for intervention.
[2018-05-04] MEDS: Prenatal Vit/Ca/Iron/Folic Acid Tablet PO SCH (08:45)
== END 2018-05-04 15:14 | disposition home or self-care (01) ==
LOC: H2E 09:47 → H1EA 15:41
PROVIDERS: ADMIT Obstetrics & Gynecology; ATTEND Obstetrics & Gynecology